=== PATIENT | male | born 1950 | race Caucasian/White ===

== ENCOUNTER 2019-03-06 20:01 | Inpatient (IN) | payer MEDICARE ==
[~2019-03-06] VITALS: Ht 195.6 cm; Wt 112.5 kg
[2019-03-06] MEDS ORDERED: SODIUM CHLORIDE 0.9% 1,000 ML IV ONE (22:26)
[2019-03-06 23:10] LABS: BASOPHILS % 0.6 % (0.0-2.0); EOSINOPHILS % 1.1 % (0.0-5.0); HEMATOCRIT. 43.6 % (42.0-52.0); HEMOGLOBIN. 15.1 g/dL (14.0-18.0); LYMPHOCYTES % 17.6 % (20.0-50.0); MEAN CORPUSCULAR HEMOGLOBIN 30.6 pg (28.0-32.0); MEAN CORPUSCULAR VOLUME 88.5 fL (80.0-94.0); MEAN PLATELET VOLUME 8.7 fl (7.4-10.4); MONOCYTES % 8.5 % (2.0-8.0); NEUTROPHILS % 72.2 % (40.0-76.0); PLATELET 157 x1000/uL (130-400); RED BLOOD CELL COUNT 4.92 mill/uL (4.7-6.1); RED CELL DISTRIBUTION WIDTH 13.5 % (11.6-14.6)
[2019-03-06 23:15] LABS: CHLORIDE 112 mEq/L (98-107)
[2019-03-06 23:19] LABS: ETHANOL BLOOD < 10 mg/dL
[2019-03-07 00:39] LABS: CLARITY URINE CLEAR (CLEAR); COLOR URINE YELLOW (YELLOW); KETONES URINE TRACE (NEGATIVE); LEUKOCYTE ESTERASE URINE NEGATIVE (NEGATIVE); NITRITE URINE NEGATIVE (NEGATIVE); OCCULT BLOOD URINE NEGATIVE (NEGATIVE); PH URINE 5.5 (4.5-8.0); PROTEIN URINE NEGATIVE (NEGATIVE); SPECIFIC GRAVITY URINE 1.021 (1.005-1.030)
[2019-03-07 01:20] LABS: *AMPHETAMINES SCREEN URINE NEGATIVE (NEGATIVE); *BARBITURATES SCREEN URINE NEGATIVE (NEGATIVE); *BENZODIAZEPINES SCREEN URINE NEGATIVE (NEGATIVE); *COCAINE SCREEN URINE NEGATIVE (NEGATIVE)
[2019-03-07 01:21] LABS: CANNABINOID URINE SCREEN NEGATIVE (NEGATIVE); METHADONE URINE SCREEN NEGATIVE (NEGATIVE); OPIATES URINE SCREEN NEGATIVE (NEGATIVE); PHENCYCLIDINE URINE SCREEN NEGATIVE (NEGATIVE)
[2019-03-07 06:00] VITALS: BP 130/80
[2019-03-07] MEDS: LORAZEPAM 2MG/ML CPJ IV PRN ×2 (06:23→20:45)
[2019-03-07 08:00] VITALS: BP 127/70
[2019-03-07] MEDS ORDERED: CEFTRIAXONE 1 G PREMIX 50 ML IV SCH (08:00)
[2019-03-07] MEDS: DEXT 5%/0.45% NACL 1000ML 1,000 ML IV SCH ×2 (08:24→20:48)
[2019-03-07 11:30] LABS: CLARITY URINE CLEAR (CLEAR); COLOR URINE YELLOW (YELLOW); KETONES URINE NEGATIVE (NEGATIVE); LEUKOCYTE ESTERASE URINE TRACE (NEGATIVE); NITRITE URINE NEGATIVE (NEGATIVE); OCCULT BLOOD URINE NEGATIVE (NEGATIVE); PH URINE 6.5 (4.5-8.0); PROTEIN URINE NEGATIVE (NEGATIVE); SPECIFIC GRAVITY URINE 1.018 (1.005-1.030)
[2019-03-07 12:00] VITALS: BP 140/78
[2019-03-07] MEDS ORDERED: ACETAMINOPHEN 325MG TABLET PO PRN (12:15)
[2019-03-07] MEDS ORDERED: ONDANSETRON HCL 4MG/2ML INJ IV PRN (12:15)
[2019-03-07 13:13] LABS: BASOPHILS % 0.7 % (0.0-2.0); CHLORIDE 115 mEq/L (98-107); EOSINOPHILS % 1.5 % (0.0-5.0); HEMATOCRIT. 42.7 % (42.0-52.0); HEMOGLOBIN. 14.5 g/dL (14.0-18.0); LYMPHOCYTES % 15.3 % (20.0-50.0); MEAN CORPUSCULAR HEMOGLOBIN 30.1 pg (28.0-32.0); MEAN CORPUSCULAR VOLUME 88.7 fL (80.0-94.0); MEAN PLATELET VOLUME 8.6 fl (7.4-10.4); MONOCYTES % 7.8 % (2.0-8.0); NEUTROPHILS % 74.7 % (40.0-76.0); PLATELET 141 x1000/uL (130-400); RED BLOOD CELL COUNT 4.81 mill/uL (4.7-6.1); RED CELL DISTRIBUTION WIDTH 13.6 % (11.6-14.6)
[2019-03-07 13:25] LABS: T4 FREE 0.98 ng/dL (0.76-1.46)
[2019-03-07 13:47] LABS: VITAMIN B12 SERUM 247 pg/mL (211-911)
[2019-03-07 16:00] VITALS: BP 133/76
[2019-03-07 20:00] VITALS: BP 122/73
[2019-03-08] VITALS: BP 118/69
[2019-03-08 04:00] VITALS: BP 148/66
[2019-03-08 06:29] LABS: CHLORIDE 113 mEq/L (98-107)
[2019-03-08 06:30] LABS: BASOPHILS % 0.5 % (0.0-2.0); EOSINOPHILS % 1.4 % (0.0-5.0); HEMATOCRIT. 43.3 % (42.0-52.0); HEMOGLOBIN. 15.1 g/dL (14.0-18.0); LYMPHOCYTES % 10.8 % (20.0-50.0); MEAN CORPUSCULAR HEMOGLOBIN 30.7 pg (28.0-32.0); MEAN CORPUSCULAR VOLUME 88.3 fL (80.0-94.0); MEAN PLATELET VOLUME 8.6 fl (7.4-10.4); MONOCYTES % 6.5 % (2.0-8.0); NEUTROPHILS % 80.8 % (40.0-76.0); PLATELET 152 x1000/uL (130-400); RED BLOOD CELL COUNT 4.91 mill/uL (4.7-6.1); RED CELL DISTRIBUTION WIDTH 13.2 % (11.6-14.6)
[2019-03-08 08:19] VITALS: BP 160/92
[2019-03-08 12:35] VITALS: BP 120/95
[2019-03-08 16:16] VITALS: BP 133/82
[2019-03-08 20:00] VITALS: BP 124/105
[2019-03-08] MEDS: DEXT 5%/0.45% NACL 1000ML 1,000 ML IV SCH (20:26)
[2019-03-08] MEDS: CEFTRIAXONE 1 G PREMIX 50 ML IV SCH (20:26)
[2019-03-09] VITALS: BP 127/76
[2019-03-09 04:00] VITALS: BP 132/84
[2019-03-09 07:39] LABS: CHLORIDE 111 mEq/L (98-107)
[2019-03-09 08:00] VITALS: BP 142/88
[2019-03-09 08:22] LABS: BASOPHILS % 0.8 % (0.0-2.0); EOSINOPHILS % 1.9 % (0.0-5.0); HEMATOCRIT. 43.6 % (42.0-52.0); HEMOGLOBIN. 15.6 g/dL (14.0-18.0); LYMPHOCYTES % 13.4 % (20.0-50.0); MEAN CORPUSCULAR HEMOGLOBIN 31.2 pg (28.0-32.0); MEAN CORPUSCULAR VOLUME 86.9 fL (80.0-94.0); MEAN PLATELET VOLUME 8.9 fl (7.4-10.4); MONOCYTES % 7.1 % (2.0-8.0); NEUTROPHILS % 76.8 % (40.0-76.0); PLATELET 164 x1000/uL (130-400); RED BLOOD CELL COUNT 5.02 mill/uL (4.7-6.1); RED CELL DISTRIBUTION WIDTH 13.2 % (11.6-14.6)
[2019-03-09] MEDS: DEXT 5%/0.45% NACL 1000ML 1,000 ML IV SCH ×2 (09:28→20:59)
[2019-03-09] MEDS: LORAZEPAM 2MG/ML CPJ IV PRN ×2 (11:19→18:38)
[2019-03-09 12:00] VITALS: BP 138/94
[2019-03-09 16:00] VITALS: BP 146/118
[2019-03-09] MEDS: NYSTATIN 100,000 UNITS/ML 5ML UDC SSW SCH (18:07)
[2019-03-09 20:00] VITALS: BP 147/99
[2019-03-09] MEDS: CEFTRIAXONE 1 G PREMIX 50 ML IV SCH (20:59)
[2019-03-10] VITALS (7 sets, daily range): BP systolic 126–157; BP diastolic 43–105
[2019-03-10] MEDS: NYSTATIN 100,000 UNITS/ML 5ML UDC SSW SCH ×3 (00:47→12:27)
[2019-03-10] MEDS ORDERED: QUETIAPINE FUMARATE 25MG TABLET PO SCH (09:00)
[2019-03-10] MEDS: DEXT 5%/0.45% NACL 1000ML 1,000 ML IV SCH (09:23)
[2019-03-10] MEDS ORDERED: HYDROCODONE/ACETAMINOPHEN 5/325MG TABLET PO PRN (14:45)
[2019-03-10] MEDS ORDERED: CLONIDINE 0.1MG TABLET PO PRN (14:45)
[2019-03-10] MEDS ORDERED: DIPHENHYDRAMINE 50MG/ML VIAL IV PRN (14:45)
[2019-03-10] MEDS ORDERED: LACTULOSE 20G/30ML UDC PO PRN (14:45)
[2019-03-10] MEDS ORDERED: METOPROLOL TARTRATE 25MG TABLET PO NR (15:00)
[2019-03-10 15:58] LABS: BG BASE EXCESS 1.3 mmol/L (-2.0-2.0); BG CARBOXYHEMOGLOBIN 0.1 % (0.5-1.5); BG DEOXYHEMOGLOBIN 6.3 % (0.0-5.0); BG FRACTION INSPIRED OXYGEN 28; BG HCO3 ACT 25.1 mmol/L (22.0-26.0); BG METHEMOGLOBIN 0.6 % (0.0-1.5); BG OXYGEN SATURATION 93.7 % (92.0-98.5); BG PCO2 37.7 mmHg (35.0-45.0); BG PH 7.442 (7.350-7.450); BG PO2 63.7 mmHg (75.0-100.0); BG SAMPLE SITE RIGHT RADIAL; BG TOTAL HEMOGLOBIN 16.7 g/dL (12.0-18.0); BG VENT MODE NASAL CANNULA
[2019-03-10 17:03] LABS: HEMATOCRIT 46.4 % (42.0-52.0); MEAN CORPUSCULAR VOLUME 87.1 fL (80.0-94.0); PLATELET 179 x1000/uL (130-400); RED BLOOD CELL COUNT 5.33 mill/uL (4.7-6.1); RED CELL DISTRIBUTION WIDTH 13.6 % (11.6-14.6)
[2019-03-10 17:09] LABS: CHLORIDE 107 mEq/L (98-107)
[2019-03-10 17:14] LABS: INR 1.1; PROTHROMBIN TIME 11.5 sec (9.6-11.0)
[2019-03-10] MEDS ORDERED: IPRATROPIUM/ALBUTEROL 0.5-3(2.5)MG/3ML NEB HHN SCH (18:00)
[2019-03-10] MEDS ORDERED: PIPERACILLIN/TAZOBACTAM 3.375 G in DEXT 5% WATER 100 ML IV SCH (18:00)
[2019-03-10] MEDS ORDERED: ENOXAPARIN 40MG/0.4ML SYR SUBCUT SCH (21:00)
[2019-03-10] MEDS ORDERED: METOPROLOL TARTRATE 25MG TABLET PO SCH (21:00)
== END 2019-03-10 16:50 | DRG 640 ==
LOC: ER 20:01 → 6WST 03-07 00:12 → ENRESERV 03-07 05:02
PROVIDERS: ADMIT Internal Medicine; ATTEND Internal Medicine
DX: E86.0 Dehydration (principal); G93.41 Metabolic encephalopathy; N39.0 Urinary tract infection, site not specified; E87.0 Hyperosmolality and hypernatremia; E87.6 Hypokalemia; E87.8 Other disorders of electrolyte and fluid balance, not elsewhere classified; F02.80 Dementia in other diseases classified elsewhere, unspecified severity, without behavioral disturbance, psychotic disturbance, mood disturbance, and anxiety; G30.9 Alzheimer's disease, unspecified; I10 Essential (primary) hypertension; M48.02 Spinal stenosis, cervical region; R62.7 Adult failure to thrive; W01.0XXA Fall on same level from slipping, tripping and stumbling without subsequent striking against object, initial encounter; Z68.29 Body mass index [BMI] 29.0-29.9, adult; Z79.899 Other long term (current) drug therapy; Z86.73 Personal history of transient ischemic attack (TIA), and cerebral infarction without residual deficits; Y93.89 Activity, other specified; Y92.89 Other specified places as the place of occurrence of the external cause; Y99.8 Other external cause status
CPT/HCPCS: 36415; 36600; 70551; 71045; 80048; 80305; 80320; 81003; 82140; 82375; 82607; 82805; 83880; 84439; 84443; 84484; 85027; 92610; 93005; 93306; 97162; 97530; 99285; J0696; J2060; J2543; J7030; J7060; G0480